=== PATIENT | female | born 1990 | race Caucasian/White ===

== ENCOUNTER 2017-12-15 16:08 | Emergency (ER) | payer BC, OTHER ==
[2017-12-15 17:26] LABS: Absolute Lymphocytes (CBC) 2.2 K/uL (0.7-4.9); Absolute Monocytes 0.7 K/uL (0.1-1.3); Absolute Neutrophil 6.9 K/uL (1.8-8.0); Basophils % 0.3 % (0-1.3); Eosinophils % 1.6 % (0-4.4); Hematocrit 34.4 % (36.0-45.0); Lymphocytes % 21.7 % (15.3-44.8); MCH 31.6 pg (27.0-35.0); MPV 8.5 fL (7.6-11.3); Monocytes % 7.4 % (3.3-12.3); RBC Red Blood Cell Count 3.86 M/uL (3.86-4.86)
[2017-12-15 17:29] LABS: Bicarbonate 27 mEq/L (21-31); Glucose Level 140 mg/dL (65-120); Potassium 3.5 mEq/L (3.6-5.0); Sodium Level 139 mEq/L (135-145)
[2017-12-15 17:30] LABS: BUN Blood Urea Nitrogen 8 mg/dL (6-20)
[2017-12-15 17:41] LABS: Urine Specific Gravity >1.030 (1.005-1.030)
[2017-12-15 17:41] LABS: Urine Blood NEGATIVE (NEG); Urine Glucose NEGATIVE (NEG); Urine Protein NEGATIVE (NEG); Urine Specific Gravity >1.030 (1.005-1.030)
--- NOTE | 2017-12-15 19:02 | RAD REPORT ---
EXAM DESCRIPTION: RAD - Chest Pa And Lat (2 Views) - 12/15/2017 6:49 pm CLINICAL HISTORY: Right-sided rib pain COMPARISON: 02/25/2008 FINDINGS: The lungs are clear. The heart is normal in size. No displaced fractures. IMPRESSION: No acute or concerning finding suspected.
--- NOTE | 2017-12-15 19:37 | ER ---
Nurse's Notes [facility] Name: Divya Scales Age: 27 yrs Sex: Female : 1990 Arrival Date: 12/15/2017 Time: 16:11 Bed 18 Private MD: Diagnosis: Chest pain, unspecified;Chest pain on breathing;Dyspnea Presentation: 12/15 16:14 Presenting complaint: Patient states: Right lower rib pain that is worse when taking a aj deep breath. Reports pain started 2 days ago. Is unrelieved by asthma inhaler. Transition of care: patient was not received from another setting of care. Onset of symptoms was December 13, 2017. Initial Sepsis Screen: Does the patient meet any 2 criteria? No. Patient's initial sepsis screen is negative. Does the patient have a suspected source of infection? No. Patient's initial sepsis screen is negative. Care prior to arrival: None. 16:14 Method Of Arrival: Ambulatory 16:14 Acuity: MARISSA 3 aj Triage Assessment: 16:16 General: Appears in no apparent distress. comfortable, Behavior is calm, cooperative, aj appropriate for age. Pain: Complains of pain in right eighth rib, right ninth rib, right seventh intercostal space and right eighth intercostal space. Neuro: Level of Consciousness is awake, alert, obeys commands, Oriented to person, place, time, situation, Appropriate for age. Respiratory: Airway is patent Trachea midline Respiratory effort is even, unlabored, Respiratory pattern is regular, symmetrical. Derm: Skin is intact, is healthy with good turgor, Skin is pink, warm \T\ dry. normal. 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 - Social history:: Smoking status: Patient/guardian denies using tobacco. Screenin:20 Abuse screen: Denies threats or abuse. Nutritional screening: No deficits noted. rb1 Tuberculosis screening: No symptoms or risk factors identified. Fall Risk None identified. Assessment: 16:20 General: Appears in no apparent distress. comfortable, Behavior is calm, cooperative, rb1 Denies fever. Pain: Complains of pain in right upper quadrant Pain does not radiate. Pain currently is 7 out of 10 on a pain scale. Pain began x 1 week. Neuro: Level of Consciousness is awake, alert, obeys commands, Oriented to person, place, time, situation. Cardiovascular: Capillary refill < 3 seconds is brisk in bilateral fingers. Respiratory: Airway is patent Respiratory effort is even, unlabored, Respiratory pattern is regular, symmetrical. Respiratory: Reports pain with cough pain with respiration. GI: No signs and/or symptoms were reported involving the gastrointestinal system. : No signs and/or symptoms were reported regarding the genitourinary system. Derm: Skin is pink, warm \T\ dry. Musculoskeletal: Range of motion: intact in all extremities. 18:59 Reassessment: Received lab alert for D-Dimer of 903. Provider notified. rb1 21:10 Reassessment: Patient appears in no apparent distress at this time. Patient and/or jd3 family updated on plan of care and expected duration. Pain level reassessed. Patient is alert, oriented x 3, equal unlabored respirations, skin warm/dry/pink. pt resting in bed, call poole in reach, family bedside, waiting for EMS for transfer. Vital Signs: 16:16 BP 133 / 105; Pulse 109; Resp 20; Temp 98.6; Pulse Ox 99% on R/A; Weight 69.4 kg; aj Height 5 ft. 4 in. (162.56 cm); 17:00 BP 110 / 68; Pulse 85; Resp 19; Pulse Ox 99% on R/A; rb1 17:30 BP 122 / 81; Pulse 97; Resp 19; Pulse Ox 98% on R/A; rb1 21:16 BP 115 / 60; Pulse 85; Resp 15 S; Pulse Ox 100% on R/A; jd3 16:16 Body Mass Index 26.26 (69.40 kg, 162.56 cm) aj Vitals: 17:46 Heart Tones 152 bpm. rb1 ED Course: 16:11 Patient arrived in ED. sb2 16:15 Triage completed. aj 16:16 Arm band placed on left wrist. Patient placed in an exam room. aj 16:20 Patient has correct armband on for positive identification. Bed in low position. Call rb1 light in reach. Side rails up X 1. Pulse ox on. NIBP on. 16:22 Katy Sanchez FNP-C is PHCP. kb 16:22 Hussein Juárez MD is Attending Physician. kb 16:27 Lisa Hermosillo, RN is Primary Nurse. rb1 17:06 EKG done, by property technician. reviewed by Katy PANIAGUA. at1 17:10 Missed attempt(s): 22 gauge in right antecubital area. blood collected and sent.. rb1 18:46 Inserted saline lock: 20 gauge in left antecubital area, using aseptic technique. Blood ag collected. 18:49 Chest Pa And Lat (2 Views) XRAY In Process Unspecified. EDMS 19:00 Report given to ALIREZA Franks. rb1 21:47 No provider procedures requiring assistance completed. Patient transferred, IV remains jd3 in place. Administered Medications: 17:40 Drug: NS 0.9% 1000 ml Route: IV; Rate: 1000 ml; Site: left antecubital; rb1 21:49 Follow up: Response: No adverse reaction; IV Status: Completed infusion; IV Intake: jd3 1000ml Intake: 21:49 IV: 1000ml; Total: 1000ml. jd3 Outcome: 19:36 ER care complete, transfer ordered by . kb 21:48 Transferred by ground EMS to [facility], Transfer form jd3 completed. 21:48 Condition: stable 21:48 Instructed on the need for transfer, Demonstrated understanding of instructions. 21:50 Patient left the ED. jd3 Signatures: Dispatcher [employer] EDMS Katy Sanchez FNP-C FNP-Ckb Myers, Amanda RN Christi Ansari, medical case worker EKG Tat1 Deion Suzy ag Lisa Hermosillo, RN RN rb1 Tacos Whitney RN RN jd3 Billeau, Sheri sb2 Corrections: (The following items were deleted from the chart) 19:51 18:59 Reassessment: Received lab alert for D-Dimer of 903. rb1 rb1
--- NOTE | 2017-12-15 19:37 | EDPHYS ---
Physician Documentation [facility] Name: Divya Scales Age: 27 yrs Sex: Female : 1990 Arrival Date: 12/15/2017 Time: 16:11 Bed 18 Private MD: ED Physician Hussein Juárez HPI: 12/15 18:47 This 27 yrs old Female presents to ER via Ambulatory with complaints of kb shortness of breath. 18:47 Onset: The symptoms/episode began/occurred 1 week(s) ago. The patient has not kb experienced similar symptoms in the past. The patient has not recently seen a physician. 18:47 Pt reports shortness of breath that started one week ago. States she has right anterior kb lower chest pain that is worse with deep breath as well. Pt is 13 weeks . Has history of asthma in childhood, but has not had any problems recently. . 18:48 The patient has shortness of breath with light activity. Duration: The symptoms are kb continuous, and are unchanged since they started. The patient's shortness of breath is aggravated by exertion, is alleviated by nothing. Associated signs and symptoms: Pertinent positives: chest pain, Pertinent negatives: non-productive cough, productive cough, diaphoresis, dizziness, fever, hemoptysis, loss of consciousness, nausea, numbness in extremities, visual changes, vomiting. Severity of symptoms: At their worst the symptoms were moderate in the emergency department the symptoms are unchanged. 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 - Social history:: Smoking status: Patient/guardian denies using tobacco. ROS: 18:46 Constitutional: Negative for fever, chills, and weight loss, ENT: Negative for injury, kb pain, and discharge, Neck: Negative for injury, pain, and swelling, Abdomen/GI: Negative for abdominal pain, nausea, vomiting, diarrhea, and constipation, Back: Negative for injury and pain, : Negative for injury, bleeding, discharge, and swelling, MS/Extremity: Negative for injury and deformity, Skin: Negative for injury, rash, and discoloration, Neuro: Negative for headache, weakness, numbness, tingling, and seizure. 18:46 Cardiovascular: Positive for chest pain, Negative for edema, orthopnea, palpitations, paroxysmal nocturnal dyspnea. 18:46 Respiratory: Positive for dyspnea on exertion, shortness of breath, Negative for cough, hemoptysis, orthopnea, pleurisy, sputum production, wheezing. Exam: 18:46 Constitutional: This is a well developed, well nourished patient who is awake, alert, kb and in no acute distress. Head/Face: Normocephalic, atraumatic. ENT: Nares patent. No nasal discharge, no septal abnormalities noted. Tympanic membranes are normal and external auditory canals are clear. Oropharynx with no redness, swelling, or masses, exudates, or evidence of obstruction, uvula midline. Mucous membranes moist. Neck: Trachea midline, no thyromegaly or masses palpated, and no cervical lymphadenopathy. Supple, full range of motion without nuchal rigidity, or vertebral point tenderness. No Meningismus. Cardiovascular: Regular rate and rhythm with a normal S1 and S2. No gallops, murmurs, or rubs. Normal PMI, no JVD. No pulse deficits. Respiratory: Lungs have equal breath sounds bilaterally, clear to auscultation and percussion. No rales, rhonchi or wheezes noted. No increased work of breathing, no retractions or nasal flaring. Abdomen/GI: Soft, non-tender, with normal bowel sounds. No distension or tympany. No guarding or rebound. No evidence of tenderness throughout. Back: No spinal tenderness. No costovertebral tenderness. Full range of motion. Skin: Warm, dry with normal turgor. Normal color with no rashes, no lesions, and no evidence of cellulitis. MS/ Extremity: Pulses equal, no cyanosis. Neurovascular intact. Full, normal range of motion. Neuro: Awake and alert, GCS 15, oriented to person, place, time, and situation. Cranial nerves II-XII grossly intact. Motor strength 5/5 in all extremities. Sensory grossly intact. Cerebellar exam normal. Normal gait. 18:46 Chest/axilla: Inspection: normal, Palpation: tenderness, that is moderate, of the right breast, that totally reproduces the patient's complaints. Vital Signs: 16:16 BP 133 / 105; Pulse 109; Resp 20; Temp 98.6; Pulse Ox 99% on R/A; Weight 69.4 kg; aj Height 5 ft. 4 in. (162.56 cm); 17:00 BP 110 / 68; Pulse 85; Resp 19; Pulse Ox 99% on R/A; rb1 17:30 BP 122 / 81; Pulse 97; Resp 19; Pulse Ox 98% on R/A; rb1 21:16 BP 115 / 60; Pulse 85; Resp 15 S; Pulse Ox 100% on R/A; jd3 16:16 Body Mass Index 26.26 (69.40 kg, 162.56 cm) aj MDM: 16:23 Patient medically screened. kb 18:38 Data reviewed: vital signs, nurses notes. Data interpreted: Pulse oximetry: on room air kb is 98 %. Interpretation: normal. 19:35 Counseling: I had a detailed discussion with the patient and/or guardian regarding: the kb historical points, exam findings, and any diagnostic results supporting the discharge/admit diagnosis, lab results, radiology results, the need to transfer to another facility, for higher level of care. 12/15 16:46 Order name: CBC with Diff; Complete Time: 17:30 kb 12/15 16:46 Order name: Basic Metabolic Panel; Complete Time: 17:30 kb 12/15 17:20 Order name: Urine Dipstick--Ancillary (enter results); Complete Time: 17:51 kb 12/15 17:21 Order name: Urine --Ancillary (enter results) kb 12/15 17:21 Order name: Urine --Ancillary; Complete Time: 17:45 EDMS 12/15 18:11 Order name: Urine Microscopic Only; Complete Time: 20:53 bd 12/15 16:46 Order name: IV Start; Complete Time: 17:22 kb 12/15 16:46 Order name: EKG; Complete Time: 16:46 kb 12/15 16:46 Order name: EKG - Nurse/Tech; Complete Time: 17:02 kb 12/15 16:46 Order name: Chest Pa And Lat (2 Views) XRAY; Complete Time: 19:04 kb 12/15 16:46 Order name: Vital Signs; Complete Time: 17:43 kb 12/15 17:21 Order name: FHT's; Complete Time: 17:47 kb 12/15 18:39 Order name: D-Dimer; Complete Time: 19:04 kb Administered Medications: 17:40 Drug: NS 0.9% 1000 ml Route: IV; Rate: 1000 ml; Site: left antecubital; rb1 21:49 Follow up: Response: No adverse reaction; IV Status: Completed infusion; IV Intake: jd3 1000ml Disposition: 12/16 11:01 Co-signature as Attending Physician, Hussein Juárez MD I agree with the assessment and [facility] plan of care. Disposition: 12/15/17 19:36 Transfer ordered to [facility]. Diagnosis are Chest pain, unspecified, Chest pain on breathing, Dyspnea. - Reason for transfer: Higher level of care. - Accepting physician is Gladys. - Condition is Stable. - Problem is new. - Symptoms are unchanged. Signatures: Dispatcher [employer] EDKaty Sanon, RADIO OPERATOR GROUND-C RADIO OPERATOR GROUND-Christi Rolle, RN Hussein Blake MD MD cha Barber, Rebecca, RN RN rb1 Tacos Whitney RN RN jd3 Corrections: (The following items were deleted from the chart) 12/15 18:51 18:47 This 27 yrs old Female presents to ER via Ambulatory with complaints of kb Flank Pain. kb 21:50 19:36 12/15/2017 19:36 Transfer ordered to [facility]. Diagnosis is Chest pain, jd3 unspecified; Chest pain on breathing; Dyspnea. Reason for transfer: Higher level of care. Accepting physician is Gladys. Condition is Stable. Problem is new. Symptoms are unchanged. kb
[2017-12-15 20:51] LABS: Urine Amorphous Sediment 3+ /HPF (NONE SEEN); Urine Bacteria <20 /HPF (<20); Urine Culture Reflex Order NOT NEEDED; Urine Mucus 2+ /HPF (NONE SEEN); Urine RBC <5 /HPF (NONE SEEN)
[2017-12-15 22:01] VITALS: TEMP 98.6
[2017-12-15 22:04] VITALS: BP 115/60; O2SAT 100
--- NOTE | 2017-12-16 10:30 | EKG ---
Test Date: 2017-12-15 Test Time: 16:52:18 Sales Promotion Officer: KHRIS MEASUREMENT RESULTS: Intervals: Rate: 93 SC: 138 QRSD: 80 QT: 338 QTc: 420 [place]: P: 41 SC: 138 QRS: 47 T: 19 INTERPRETIVE STATEMENTS: Normal sinus rhythm Normal ECG Compared to ECG 02/25/2008 14:06:02 No significant changes Electronically Signed On 12-16-17 10:27:17 CDT by Francisco Lyons
== END 2017-12-15 21:50 | disposition short-term general hospital (02) ==
LOC: ER 16:08
DX: R07.1 Chest pain on breathing (principal); J45.909 Unspecified asthma, uncomplicated; Z88.1 Allergy status to other antibiotic agents
CPT/HCPCS: 36415; 71046; 80048; 81003; 81015; 81025; 85025; 85379; 93005; 96360; 96361; 99285